=== PATIENT | female | born 1990 | race Two or more races ===

== ENCOUNTER 2020-09-10 14:25 | Emergency (ER) | payer OTHER ==
[~2020-09-10] VITALS: Ht 175.3 cm; Wt 99.8 kg
[2020-09-10] MEDS ORDERED: IBUPROFEN200 MG PO (17:51)
== END 2020-09-10 18:06 | disposition home or self-care (01) ==
LOC: ER 14:25
DX: K80.20 Calculus of gallbladder without cholecystitis without obstruction (principal); R10.11 Right upper quadrant pain